=== PATIENT | female | born 1930 | race Caucasian/White ===

== ENCOUNTER 2017-11-24 21:50 | Observation (INO) ==
[2017-11-24 22:29] LABS: Basophils % 0.2 % (0.1-2.0); Eosinophils # 0.1 K/mm3 (0.0-0.4); Eosinophils % 1.2 % (0.1-12.0); Hematocrit 35.1 % (37.0-47.0); Hemoglobin 11.4 g/dL (12.2-16.2); Lymphocytes # 1.1 K/mm3 (0.7-4.5); Lymphocytes % 13.3 K/mm3 (10-50); Mean Corpuscular HGB Conc 32.5 g/dL (31.8-35.4); Mean Corpuscular Hemoglobin 29.9 pg (27.0-31.2); Mean Corpuscular Volume 91.7 fl (81-99); Mean Platelet Volume 7.1 fl (7.4-10.4); Monocytes # 0.7 K/mm3 (0.1-1.0); Monocytes % 8.2 % (1.7-9.3); Neutrophils # 6.4 K/mm3 (1.8-7.8); Platelet Count 174 K/mm3 (142-424); Red Blood Count 3.82 M/mm3 (4.20-5.40); Red Cell Distribution Width 14.7 % (11.5-17.5); White Blood Count 8.3 K/mm3 (4.8-10.8)
[2017-11-24 22:47] LABS: Albumin Level 2.6 gm/dL (3.4-5.0); Albumin/Globulin Ratio 0.8 (1.1-1.8); Anion Gap 10.2 mEq/L (5-15); Bilirubin,Total 1.2 mg/dL (0.2-1.0); Calcium 9.3 mg/dL (8.5-10.1); Globulin 3.2 gm/dl (1.3-3.2); Potassium 4.2 mmoL/L (3.5-5.1); Total Protein,Serum 5.8 gm/dL (6.4-8.2)
--- NOTE | 2017-11-24 23:30 | Emergency Department Note ---
ED Disposition Clinical Impression: Intractable pain, Metastatic disease Fall Qualifiers: Encounter type: subsequent encounter Qualified Code(s): W19.XXXD - Unspecified fall, subsequent encounter Disposition: Admitted as Observation Condition on Discharge: Good Referrals: Dayron Dickerson [Primary Care Provider] - - Critical Care Critical Care Time: No Attestation: On 11/24/17, the high probability of a clinically significant, sudden or life threatening deterioration of the following system(s) required my full and direct attention, intervention and personal management. The time I documented below is in addition to time spent performing reported procedures but includes the following listed in this critical care notation. Medical Decision Making - Medical Records Medical records reviewed: Yes: I reviewed the patient's medical records. - [place] Inquiry Pt receiving controlled substance: No Vital Signs: 11/24/17 21:51 11/24/17 22:44 11/24/17 23:04 Temperature 98.6 F Temperature Source Oral Pulse Rate [Right Radial] 88 97 H 86 Respiratory Rate 15 14 16 Blood Pressure [Right Arm] 162/76 169/73 169/73 Blood Pressure Mean [Right Arm] 104 105 105 Blood Pressure Source [Right Arm] Automatic Cuff Automatic Cuff Blood Pressure Position [Right Arm] Sitting Sitting 02 Sat by Pulse Oximetry 93 L 92 L 94 L Oxygen Delivery Method Room Air Room Air Room Air - Lab Data Lab results reviewed: Yes: I reviewed the patient's lab results. Lab Results 11/24/17 22:20: WBC 8.3, RBC 3.82 L, Hgb 11.4 L, Hct 35.1 L, MCV 91.7, MCH 29.9, MCHC 32.5, RDW 14.7, Plt Count 174, MPV 7.1 L, Neut % (Auto) 77.0, Lymph % (Auto) 13.3, [place] % (Auto) 8.2, Eos % (Auto) 1.2, Baso % (Auto) 0.2, Neut # (Auto) 6.4, Lymph # (Auto) 1.1, [place] # (Auto) 0.7, Eos # (Auto) 0.1, Baso # (Auto) 0.0 11/24/17 22:20: Sodium 136, Potassium 4.2, Chloride 102, Carbon Dioxide 28, Anion Gap 10.2, BUN 18, Creatinine 1.35 H, Estimated Creat Clear 33, Estimated GFR 37 L, Est GFR ( Amer) 45 L, Glucose 121 H, Calcium 9.3, Total Bilirubin 1.2 H, AST 48 H D, ALT 12, Alkaline Phosphatase 115, Total Protein 5.8 L, Albumin 2.6 L, Globulin 3.2, Albumin/Globulin Ratio 0.8 L Result diagrams: 11/24/17 22:20 11/24/17 22:20 Orders (Tests/Meds): ED MEDICATIONS Discontinued Medications Generic Name Dose Route Start Last Admin Trade Name Vivian PRN Reason Stop Dose Admin Morphine Sulfate 2 mg 11/24/17 22:12 11/24/17 22:21 Morphine 2mg/Ml Syringe IV 11/24/17 22:13 2 mg ONCE ONE Administration Ondansetron HCl 4 mg 11/24/17 22:12 11/24/17 22:21 Zofran 4mg/2ml Vial IV 11/24/17 22:13 4 mg ONCE ONE Administration ORDERS Category Date Time Status Occult Blood,Stool Stat Lab 11/24/17 23:26 Ordered - Physician Consults Physician Consulted: yasir Reason -: Admission General Adult HPI - General Chief complaint: PAIN Stated complaint: pain Time Seen by Provider: 11/24/17 22:00 Mode of Arrival: EMS Limitations: No Limitations Description of Symptoms (Recalled from ER Triage Doc. by RN): Daughter reports p t is having pain and is requesting a stronger pain medication. She reports she was treated on Tuesday for a fall. Pt reports she is aching all over. Daughter wants patient admitted so she can get assistance with hospice. Pt was given 2 tylenol 3 at 8pm tonight. - History of Present Illness HPI narrative: pt with known breast cancer with diffuse mets - pt had fall a few days ago with no acute fx but had facial lac and since has been unable to ambulate and has inc pain ailyn with mov - no vomiting or new falls Onset (ago): day(s) Location: neck, back Radiation: non-radiation Severity: severe Associated symptoms: denies other symptoms Treatments prior to arrival: none - Related Data Home Medications Medication Instructions Recorded Confirmed aspirin 81 mg tablet,delayed 81 mg PO QDAY 04/26/17 11/24/17 release calcium carbonate 500 mg (1,250 1 tab PO BID 04/26/17 11/24/17 mg)-vitamin D3 400 unit tablet carvedilol 12.5 mg tablet 12.5 mg PO BID 04/26/17 11/24/17 furosemide 20 mg tablet 20 mg PO QDAY 04/26/17 11/24/17 isosorbide mononitrate ER 30 mg 30 mg PO QAM 04/26/17 11/24/17 tablet,extended release 24 hr omeprazole magnesium 20 mg 20 mg PO QDAY tab 04/26/17 11/24/17 tablet,delayed release pravastatin 10 mg tablet 10 mg PO QHS 04/26/17 11/24/17 acetaminophen 300 mg-codeine 30 mg 1 tab PO BID PRN tab 07/19/17 11/24/17 tablet Allergies Allergy/AdvReac Type Severity Reaction Status Date / Time rosuvastatin [From CRESTOR] Allergy Unknown Verified 11/24/17 21:59 [facility] History I have reviewed the patient's past medical history: Yes Medical History: Reports:: Cancer (bone cancer), Dementia Denies:: Diabetes Mellitus Type 1, Diabetes Mellitus Type 2, Internal Pacemaker, MRSA Other Medical History: Reports: Other Comment: breast cancer, cancer of the spine, 10 radiation treatments. Laterality Cases: Left: Total Hip Replacement Other Surgeries: Yes: Other. No: Pacemaker Amputation: No Fractures: Yes Comment: 1996- Stent placement. 1995- Gallbladder (open procedure)and appy. 1999- Rectal polyps (benign). 2004- Rt. breast Lumpectomy. 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 2013- Lt. hip replacement - Social History Smoking Status: Former smoker Alcohol Intake: never - Psychiatric History Expresses thoughts of harming self/others: None Suicide Plan Description: No Plan Family Hx:: Coronary Artery Disease ROS Obtained: Yes All systems reviewed & no additional complaints - Constitutional Constitutional: Denies fever(s) - Eyes Eyes: Denies change in vision - ENT Ears, Nose, Mouth, and Throat: Denies sore throat - Cardiovascular Cardiovascular: Denies chest pain - Gastrointestinal Gastrointestingal: Denies: abdominal pain - Genitourinary Female Genitourinary: Denies hematuria - Musculoskeletal Musculoskeletal: Reports as per HPI, Reports joint pain, Reports back pain, Reports limited range of motion, Reports neck pain - Integumentary/Breasts Skin/Breast: Denies rash - Neurologic Neurologic: Denies seizure-like activity Physical Exam - General General appearance: alert, in no apparent distress - Head Head exam: normocephalic, other (facial bruising noted ) - Eye Eye exam: Present: PERRL, EOMI - ENT ENT exam: Present: mucous membranes dry - Neck Neck exam: Present: trachea midline - Respiratory Respiratory exam: Present: other (dec bs bilat ). Absent: respiratory distress - Cardiovascular Cardiovascular exam: Present: regular rate, systolic murmur, +S4 - Abdominal Exam Abdominal exam: Present: soft. Absent: tenderness - Rectal Exam Rectal exam: Present: normal rectal tone, heme (-) stool - Extremities Exam Extremities exam: Absent: calf tenderness - Back Exam Back exam: Present: vertebral tenderness, straight leg raise (L). Absent: full ROM - Neurological Exam Neurological exam: Present: alert, CN II-XII intact - Psychiatric Psychiatric exam: Present: normal affect - Skin Skin exam: Present: other (ecchymosis)
[2017-11-25 06:54] LABS: Basophils % 0.2 % (0.1-2.0); Eosinophils # 0.1 K/mm3 (0.0-0.4); Eosinophils % 1.2 % (0.1-12.0); Hematocrit 33.8 % (37.0-47.0); Hemoglobin 11.1 g/dL (12.2-16.2); Mean Corpuscular HGB Conc 32.7 g/dL (31.8-35.4); Mean Corpuscular Hemoglobin 30.8 pg (27.0-31.2); Mean Corpuscular Volume 94.2 fl (81-99); Mean Platelet Volume 7.1 fl (7.4-10.4); Monocytes # 0.7 K/mm3 (0.1-1.0); Neutrophils # 5.8 K/mm3 (1.8-7.8); Neutrophils % 76.5 % (37.0-80.0); Platelet Count 159 K/mm3 (142-424); Red Blood Count 3.59 M/mm3 (4.20-5.40); Red Cell Distribution Width 14.8 % (11.5-17.5); White Blood Count 7.6 K/mm3 (4.8-10.8)
--- NOTE | 2017-11-25 07:30 | History & Physical Report ---
*Admission Date: 11/24/17 *Chief complaint: pain *History of present illness: 87-year-old female who comorbidities including metastatic breast cancer. She presented last night worsening pain most prominent in right upper arm. Additionally she unsteady and sustained a fall recently with bruising of her left arm and face. [facility] History Medical History: Reports:: Cancer (bone cancer), Dementia Denies:: Diabetes Mellitus Type 1, Diabetes Mellitus Type 2, Internal Pacem [place], MRSA Other Medical History: Reports: Other Laterality Cases: Left: Total Hip Replacement Other Surgeries: Yes: Other. No: Pacemaker Amputation: No Fractures: Yes - *Social History Educational Level: Completed Grade School Smoking Status: Former smoker Tobacco Type: cigarettes #Yrs smoked (if former smoker): 4 Alcohol Intake: never Occupational Status: retired Housing: house Household Members: children - Psychiatric History Expresses thoughts of harming self/others: None Suicide Plan Description: No Plan *Family Hx:: Coronary Artery Disease Review of Systems - Review of Systems Review of systems:: pertinent systems reviewed and negative unless documented below - *Neurologic Denies seizure-like activity Meds Home Medications Medication Instructions Recorded Confirmed Type aspirin 81 mg tablet,delayed 81 mg PO QDAY 04/26/17 11/24/17 History release calcium carbonate 500 mg (1,250 1 tab PO BID 04/26/17 11/24/17 History mg)-vitamin D3 400 unit tablet carvedilol 12.5 mg tablet 12.5 mg PO BID 04/26/17 11/24/17 History furosemide 20 mg tablet 20 mg PO QDAY 04/26/17 11/24/17 History isosorbide mononitrate ER 30 mg 30 mg PO QAM 04/26/17 11/24/17 History tablet,extended release 24 hr omeprazole magnesium 20 mg 20 mg PO QDAY tab 04/26/17 11/24/17 History tablet,delayed release pravastatin 10 mg tablet 10 mg PO QHS 04/26/17 11/24/17 History acetaminophen 300 mg-codeine 30 mg 1 tab PO BID PRN tab 07/19/17 11/24/17 History tablet Allergies Allergy/AdvReac Type Severity Reaction Status Date / Time rosuvastatin [From CRESTOR] Allergy Unknown Verified 11/24/17 21:59 Exam Vital signs and Labs for Last 24 Hours: Temp Pulse Resp BP Pulse Ox 97.6 F 85 18 156/58 95 08/31/18 03:26 11/25/17 03:26 11/25/17 03:26 11/25/17 03:26 11/25/17 03:26 Laboratory Results - last 24 hr 11/24/17 22:20: WBC 8.3, RBC 3.82 L, Hgb 11.4 L, Hct 35.1 L, MCV 91.7, MCH 29.9, MCHC 32.5, RDW 14.7, Plt Count 174, MPV 7.1 L, Neut % (Auto) 77.0, Lymph % (Auto) 13.3, [place] % (Auto) 8.2, Eos % (Auto) 1.2, Baso % (Auto) 0.2, Neut # (Auto) 6.4, Lymph # (Auto) 1.1, [place] # (Auto) 0.7, Eos # (Auto) 0.1, Baso # (Auto) 0.0 11/24/17 22:20: Sodium 136, Potassium 4.2, Chloride 102, Carbon Dioxide 28, Anion Gap 10.2, BUN 18, Creatinine 1.35 H, Estimated Creat Clear 33, Estimated GFR 37 L, Est GFR ( Amer) 45 L, Glucose 121 H, Calcium 9.3, Total Bilirubin 1.2 H, AST 48 H D, ALT 12, Alkaline Phosphatase 115, Total Protein 5.8 L, Albumin 2.6 L, Globulin 3.2, Albumin/Globulin Ratio 0.8 L 11/24/17 23:30: Stool Occult Blood Negative 11/25/17 06:20: WBC 7.6, RBC 3.59 L, Hgb 11.1 L, Hct 33.8 L, MCV 94.2, MCH 30.8, MCHC 32.7, RDW 14.8, Plt Count 159, MPV 7.1 L, Neut % (Auto) 76.5, Lymph % (Auto) 13.0, [place] % (Auto) 9.0, Eos % (Auto) 1.2, Baso % (Auto) 0.2, Neut # (Auto) 5.8, Lymph # (Auto) 1.0, [place] # (Auto) 0.7, Eos # (Auto) 0.1, Baso # (Auto) 0.0 I & O for Last 24 hours: Intake & Output 11/22/17 11/23/17 11/24/17 11/25/17 23:59 23:59 23:59 23:59 Intake Total 217 / 217 Balance 217 / 217 Weight 72.575 kg 70.08 kg - *Routine HEENT Exam Eye: Present: EOMI, PERRL ENT: Present: mucous membranes moist Comments: Extensive ecchymoses bilaterally around the eyes and nasal bridge with bandage on left forehead - *Routine Neck Exam Present: supple, full ROM. Absent: JVD
[2017-11-25 08:10] LABS: Anion Gap 10.3 mEq/L (5-15); Calcium 9.2 mg/dL (8.5-10.1); Potassium 4.3 mmoL/L (3.5-5.1)
--- NOTE | 2017-11-25 11:13 | Pharmacy Consult Notes ---
[facility] Pharmacy VTE Monitoring - Patient Demographics Admission date: 11/24/17 Report Date: 11/25/17 Time: 11:13 Allergies/Adverse Reactions: Patient Allergies rosuvastatin [From CRESTOR] Allergy (Unknown, Verified 11/24/17 21:59) Height: 1.65 m Weight: 70.08 kg Patient Problems: Current Active Problems Fall (Acute) Metastatic disease (Acute) Intractable pain (Acute) - VTE Risk Labs: VTE Related Lab Results Hgb 11.1 g/dL (12.2-16.2) L 11/25/17 06:20 Hct 33.8 % (37.0-47.0) L 11/25/17 06:20 Plt Count 159 K/mm3 (142-424) 11/25/17 06:20 BUN 17 mg/dL (7-18) 11/25/17 06:20 Creatinine 1.22 mg/dL (0.55-1.02) H 11/25/17 06:20 Estimated Creat Clear 35 mL/min (0-300) 11/25/17 06:20 VTE Score: 5 VTE Risk Level: Low Risk - Prophylaxis VTE Prophylaxis Ordered?: Yes Types of VTE Prophylaxis: TEDS Knee High Location of Applied Device: Bilateral Lower Extremeties
--- NOTE | 2017-11-25 14:06 | H&P/Discharge Summary ---
General - General Admission date:: 11/24/17 Discharge date: 11/25/17 *Admission Date: 11/24/17 *Chief complaint: Pain *History of present illness: 87-year-old female who comorbidities including metastatic breast cancer. She presented last night with worsening pain most prominent in right upper arm. Additionally she is unsteady and sustained a fall recently with bruising of her left arm and face. Family reports Tylenol 3 has been having minimal impact on her metastatic bone pain. They are having a hard time managing her symptoms and feel the patient has need for better symptom management of her metastatic c ancer. They wanted to discuss hospice and better control of her pain regimen. Workup in the ER significant for mild KWAKU, trauma to face and left arm, and significant pain. Admitted to medicine service for initiation of pain control and monitor for improvement kidney function. No acute events overnight. Remained medically stable. Pain better controlled with regimen of morphine. [facility] History Medical History: Reports:: Cancer (bone cancer), Dementia Denies:: Diabetes Mellitus Type 1, Diabetes Mellitus Type 2, Internal Pacemaker, MRSA Other Medical History: Reports: Other Laterality Cases: Left: Total Hip Replacement Other Surgeries: Yes: Other. No: Pacemaker Amputation: No Fractures: Yes - *Social History Educational Level: Completed Grade School Smoking Status: Former smoker Tobacco Type: cigarettes #Yrs smoked (if former smoker): 4 Alcohol Intake: never Occupational Status: retired Housing: house Household Members: children - Psychiatric History Expresses thoughts of harming self/others: None Suicide Plan Description: No Plan *Family Hx:: Coronary Artery Disease Review of Systems - Review of Systems Review of systems:: pertinent systems reviewed and negative unless documented below - *Neurologic Denies seizure-like activity Exam Vital signs and Labs for Last 24 Hours: Temp Pulse Resp BP Pulse Ox 97.7 F 89 18 171/70 99 11/25/17 07:59 11/25/17 07:59 11/25/17 07:59 11/25/17 07:59 11/25/17 07:59 Laboratory Results - last 24 hr 11/24/17 22:20: WBC 8.3, RBC 3.82 L, Hgb 11.4 L, Hct 35.1 L, MCV 91.7, MCH 29.9, MCHC 32.5, RDW 14.7, Plt Count 174, MPV 7.1 L, Neut % (Auto) 77.0, Lymph % (Auto) 13.3, [place] % (Auto) 8.2, Eos % (Auto) 1.2, Baso % (Auto) 0.2, Neut # (Auto) 6.4, Lymph # (Auto) 1.1, [place] # (Auto) 0.7, Eos # (Auto) 0.1, Baso # (Auto) 0.0 11/24/17 22:20: Sodium 136, Potassium 4.2, Chloride 102, Carbon Dioxide 28, Anion Gap 10.2, BUN 18, Creatinine 1.35 H, Estimated Creat Clear 33, Estimated GFR 37 L, Est GFR ( Amer) 45 L, Glucose 121 H, Calcium 9.3, Total Bilirubin 1.2 H, AST 48 H D, ALT 12, Alkaline Phosphatase 115, Total Protein 5.8 L, Albumin 2.6 L, Globulin 3.2, Albumin/Globulin Ratio 0.8 L 11/24/17 23:30: Stool Occult Blood Negative 11/25/17 06:20: WBC 7.6, RBC 3.59 L, Hgb 11.1 L, Hct 33.8 L, MCV 94.2, MCH 30.8, MCHC 32.7, RDW 14.8, Plt Count 159, MPV 7.1 L, Neut % (Auto) 76.5, Lymph % (Auto) 13.0, [place] % (Auto) 9.0, Eos % (Auto) 1.2, Baso % (Auto) 0.2, Neut # (Auto) 5.8, Lymph # (Auto) 1.0, [place] # (Auto) 0.7, Eos # (Auto) 0.1, Baso # (Auto) 0.0 11/25/17 06:20: Sodium 134 L, Potassium 4.3, Chloride 102, Carbon Dioxide 26, Anion Gap 10.3, BUN 17, Creatinine 1.22 H, Estimated Creat Clear 35, Estimated GFR 42 L, Est GFR ( Amer) 50 L, Glucose 114 H, Calcium 9.2 I & O for Last 24 hours: Intake & Output 11/22/17 11/23/17 11/24/17 11/25/17 23:59 23:59 23:59 23:59 Intake Total 817 / 817 Balance 817 / 817 Weight 72.575 kg 70.08 kg - *Routine HEENT Exam Eye: Present: EOMI, PERRL ENT: Present: mucous membranes moist Comments: Ecchymoses bilaterally around eyes more prominent on left cheek with bandage on left forehead due to laceration, corrective glasses on face - *Routine Neck Exam Present: supple, full ROM. Absent: JVD, lymphadenopathy - *Routine Respiratory Exam Present: CTA bilaterally. Absent: prolonged expiratory phase, rales - *Routine Cardiovascular Exam Present: RRR, Normal S1, Normal S2 - *Routine Abdominal Exam Present: soft, normoactive bowel sounds. Absent: tenderness - *Routine Rectal Exam Patient deferred: visual exam - *Routine Exam Patient deferred: external exam - *Routine Extremities Exam Absent: cyanosis, clubbing, edema Comments: Ecchymoses left shoulder, fistula left forearm - *Routine Skin Exam Present: intact, ecchymosis (As previously described). Absent: cyanosis, erythema - *Routine Neurological Exam Present: alert. Absent: altered mental status (Oriented to person and intermittently to place. Confused about situation pleasantly.) Hospital Course Hospital Course: Omitted to the hospital, pain regimen initiated along with IV fluids. Improvement pain control. Tolerated regular diet. Hospice consulted for assessment and possible transition to outpatient hospice. Patient remained hemodynamically stable and was accepted by hospice. Plan to discharge home in stable condition under hospice care with continued symptom management for metastatic breast cancer Results Labs on day of discharge: Labs from last 24 hours 11/25/17 11/25/17 11/24/17 06:20 06:20 23:30 WBC 7.6 RBC 3.59 L Hgb 11.1 L Hct 33.8 L MCV 94.2 MCH 30.8 MCHC 32.7 RDW 14.8 Plt Count 159 MPV 7.1 L Neut % (Auto) 76.5 Lymph % (Auto) 13.0 [place] % (Auto) 9.0 Eos % (Auto) 1.2 Baso % (Auto) 0.2 Neut # (Auto) 5.8 Lymph # (Auto) 1.0 [place] # (Auto) 0.7 Eos # (Auto) 0.1 Baso # (Auto) 0.0 Sodium 134 L Potassium 4.3 Chloride 102 Carbon Dioxide 26 Anion Gap 10.3 BUN 17 Creatinine 1.22 H Estimated Creat Clear 35 Estimated GFR 42 L Est GFR ( Amer) 50 L Glucose 114 H Calcium 9.2 Total Bilirubin AST ALT Alkaline Phosphatase Total Protein Albumin Globulin Albumin/Globulin Ratio Stool Occult Blood Negative 11/24/17 11/24/17 22:20 22:20 WBC 8.3 RBC 3.82 L Hgb 11.4 L Hct 35.1 L MCV 91.7 MCH 29.9 MCHC 32.5 RDW 14.7 Plt Count 174 MPV 7.1 L Neut % (Auto) 77.0 Lymph % (Auto) 13.3 [place] % (Auto) 8.2 Eos % (Auto) 1.2 Baso % (Auto) 0.2 Neut # (Auto) 6.4 Lymph # (Auto) 1.1 [place] # (Auto) 0.7 Eos # (Auto) 0.1 Baso # (Auto) 0.0 Sodium 136 Potassium 4.2 Chloride 102 Carbon Dioxide 28 Anion Gap 10.2 BUN 18 Creatinine 1.35 H Estimated Creat Clear 33 Estimated GFR 37 L Est GFR ( Amer) 45 L Glucose 121 H Calcium 9.3 Total Bilirubin 1.2 H AST 48 H D ALT 12 Alkaline Phosphatase 115 Total Protein 5.8 L Albumin 2.6 L Globulin 3.2 Albumin/Globulin Ratio 0.8 L Stool Occult Blood DS: Diagnosis - Discharge Diagnosis (1) Intractable pain Status: Acute Problem details: Pain control with morphine. Discharge with Roxanol. Further management per hospice (2) Metastatic disease Status: Acute Problem details: Widely metastatic breast cancer causing pain leading to admission. Better controlled with morphine regimen. Due to comorbidities patient not a candidate for curative or palliative measurement, discharged to hospice care. (3) Complex laceration of face Status: Acute Problem details: Managed by ER. Stable. Change bandage as needed. No further complication during admission Discharge Medications - Medications for Discharge Home Medication List at Discharge: New Acetaminophen [Acetaminophen 325mg tab] 650 mg PO Q4HP PRN tablet PRN Reason: As Needed For Fever Or Pain Docusate Sodium [Docusate Sodium 100mg Cap] 100 mg PO DAILY capsule Continue pravastatin 10 mg tablet 10 mg PO QHS aspirin 81 mg tablet,delayed release 81 mg PO QDAY isosorbide mononitrate ER 30 mg tablet,extended release 24 hr 30 mg PO QAM carvedilol 12.5 mg tablet 12.5 mg PO BID furosemide 20 mg tablet 20 mg PO QDAY Discontinued calcium carbonate 500 mg (1,250 mg)-vitamin D3 400 unit tablet 1 tab PO BID omeprazole magnesium 20 mg tablet,delayed release 20 mg PO QDAY tab acetaminophen 300 mg-codeine 30 mg tablet 1 tab PO BID PRN tab PRN Reason: pain Disposition Disposition: Hospice - Home
== END 2017-11-25 18:52 | disposition hospice, home (50) ==
LOC: 2ND 21:50 → ER 21:50 → 2ND 23:55
PROVIDERS: ADMIT Family Medicine; ATTEND Internal Medicine Adolescent Medicine